=== PATIENT | female | born 1935 | race Caucasian/White ===

== ENCOUNTER 2017-06-12 09:07 | Emergency (ER) | payer MEDICARE, OTHER ==
[2017-06-12] MEDS ORDERED: Lidocaine 1% w/Epinephrine 1:100K 30 ML VIAL ONE (09:53)
[2017-06-12] MEDS ORDERED: Bacitracin Zinc 1 Packet ONE (10:47)
--- NOTE | 2017-06-12 11:47 | RAD ---
FOUR VIEWS RIGHT ELBOW: HISTORY: Patient with fall, injury to right elbow, laceration. FINDINGS: AP, lateral, and oblique views right elbow obtained. Soft tissue injury is seen in the medial aspect of the right elbow. No definite evidence of acute fr actures or bony lesions seen. The distal humerus as well as the proximal radius and ulna are unremar kable. IMPRESSION: 1. Unremarkable 4 views right elbow. 2. Soft tissue injury is seen, but no bony pathology noted. POS: CLAUDIA
--- NOTE | 2017-06-12 12:00 | RAD ---
RIGHT HIP: HISTORY: Fall and right hip pain. FINDINGS: AP and frog-leg views right hip are obtained. No evidence of right hip fractures, subluxations, or bony lesions seen. IMPRESSION: Normal 2 views right hip. POS: CLAUDIA
== END 2017-06-12 11:05 | disposition home or self-care (01) ==
LOC: SCSER 09:07
DX: S51.011A Laceration without foreign body of right elbow, initial encounter (principal); S70.01XA Contusion of right hip, initial encounter; I10 Essential (primary) hypertension; M19.90 Unspecified osteoarthritis, unspecified site; Z79.82 Long term (current) use of aspirin; Z79.899 Other long term (current) drug therapy; W06.XXXA Fall from bed, initial encounter
CPT/HCPCS: 12002; J2001